=== PATIENT | female | born 2005 | race Caucasian/White ===

== ENCOUNTER 2024-05-19 16:55 | Emergency (ER) | payer OTHER, SELFPAY ==
[2024-05-19 17:51] VITALS: BP 120/61; PULSE 76; RESP 20; TEMP 37.3; O2SAT 100
--- NOTE | 2024-05-19 18:19 | ED.EAR ---
HPI - Ear Problem General Chief complaint: Ear Stated complaint: blood drainage from ear Time Seen by Provider: 05/19/24 18:19 Source: patient, family, RN notes reviewed and old records reviewed Mode of arrival: ambulatory Limitations: no limitations History of Present Illness HPI Narrative: 18-year-old female presents to the [facility] with complaints of right ear pain. Blood from her ear since yesterday. Patient reports that she was seen in another urgent care and was told to use ear drops. Symptoms started 2 weeks ago with ear discomfort Related Data Allergies Allergy/AdvReac Type Severity Reaction Status Date / Time No Known Allergies Allergy Mild Verified 05/19/24 18:10 Review of Systems Review of Systems: All systems reviewed & are unremarkable except as noted in HPI and below Constitutional: Constitutional: Reports no additional constitutional complaints ENT: Reports as per HPI Cardiovascular: Cardiovascular: Reports no additional cardiovascular complaints, Denies chest pain and Denies dyspnea Respiratory: Respiratory: Reports no additional respiratory complaints, Denies chest congestion, Denies cough and Denies dyspnea Gastrointestinal: Gastrointestinal: Reports no additional gastrointestinal complaints, Denies abdominal pain, Denies nausea and Denies vomiting Musculoskeletal: Musculoskeletal: Reports no additional musculoskeletal complaints Integumentary/Breasts: Skin/Breast: Reports system reviewed and no additional complaints, except as docu PMFSH Social History Social History Smoking status: Never smoker Alcohol intake: never Comments At the time of my signature, I reviewed and agree with the nursing past medical, surgical, social, and family history. There is no relevant family history pertinent to the patient complaint. Exam Const: General: cooperative, healthy appearing, comfortable, no acute distress, well developed, alert and well nourished Nutritional Appearance: well nourished Orientation/consciousness: patient oriented x3 Limitations: no limitations HENMT: Head: normal to inspection Ears: hearing grossly normal bilaterally, external ears normal, Abnormal EAC present cerumen impaction on the left and TM abnormal perforated with bloody discharge on the right and with purulent discharge on the right Face/Nose/Sinus: Normal external nose present, normal facial exam and face symmetric Face and sinus: normal facial exam and face symmetric Eyes: General: appearance normal, both eyes and all related structures Alignment and Position: alignment normal Periorbital: periorbital findings normal Neck: Neck: normal visual inspection, full ROM, no lymphadenopathy and no meningeal signs Chest: Chest palpation & inspection: normal inspection of the chest Resp: Effort & Inspection: normal respiratory effort and able to speak in complete sentences Cardio: Rate: regular rate Skin: General skin exam: normal color and no rashes or lesions noted Lesions: no lesions Rashes: no rashes Wounds: no wounds Neuro: General: patient oriented x3, gait normal, tone normal, moves all extremities and no meningeal signs Cognition (Neuro): normal cognition Speech: normal speech Gait exam (Neuro): Normal gait present Extrem: General: normal to inspection, full ROM, capillary refill normal and normal gait Psych: Appearance: grossly normal and well kempt Mental Status: mental status grossly normal Speech and movement: Normal speech and movement present and Clear speech present Affect: normal affect Attitude: cooperative Course Course Emergency Course: Discharge instructions reviewed with parent/patient, as well as provided in writing per nursing staff. The instructions also include specific and strict return/GO TO THE ER as well as f/u information. All questions have been answered, and the parent/patient deny any further questions with discharge and discharge plan. Some parts of this dictation were generated by voice recognition software and may contain typographical and/or grammatical inaccuracies. Level of Care: Express Care Visit Vital Signs Vital signs: Vital Signs Temperature 99.2 F 05/19/24 17:51 Pulse Rate 76 05/19/24 17:51 Respiratory Rate 20 05/19/24 17:51 Blood Pressure 120/61 05/19/24 17:51 Pulse Oximetry 100 05/19/24 17:51 Oxygen Delivery Room Air 05/19/24 17:51 Temperature 99.2 F 05/19/24 17:51 Pulse Rate 76 05/19/24 17:51 Respiratory Rate 20 05/19/24 17:51 Blood Pressure 120/61 05/19/24 17:51 Pulse Oximetry 100 05/19/24 17:51 Oxygen Delivery Room Air 05/19/24 17:51 reviewed Medical Decision Making MDM Narrative Medical decision making narrative: patient is sitting comfortably on exam table. No acute distress noted. Nontoxic in appearance. Vitals are stable. Patient presents with right ear discomfort, bloody discharge Was able to clear most of this cerumen from the left ear. Able to visualize TM which was normal. Used to curette Right TM, perforation noted, drainage, bloody as well as purulent. Will treat with oral antibiotics and ear drops. Encouraged patient to follow-up with primary care provider and ENT Discharge instructions reviewed with patient, as well as provided in writing per nursing staff. The instructions also include specific and strict return/GO TO THE ER as well as f/u information. All questions have been answered, and the patient deny any further questions with discharge and discharge plan. Some parts of this dictation were generated by voice recognition software and may contain typographical and/or grammatical inaccuracies. Differential Diagnosis Differential Diagnosis: Otitis media, otitis media with perforation, excessive cerumen Medical Records Medical records reviewed: Yes I reviewed the external patient's medical records. Vital Signs Vital Signs: Vital Signs Temperature 99.2 F 05/19/24 17:51 Pulse Rate 76 05/19/24 17:51 Respiratory Rate 20 05/19/24 17:51 Blood Pressure 120/61 05/19/24 17:51 Pulse Oximetry 100 05/19/24 17:51 Oxygen Delivery Room Air 05/19/24 17:51 Temperature 99.2 F 05/19/24 17:51 Pulse Rate 76 05/19/24 17:51 Respiratory Rate 20 05/19/24 17:51 Blood Pressure 120/61 05/19/24 17:51 Pulse Oximetry 100 05/19/24 17:51 Oxygen Delivery Room Air 05/19/24 17:51 reviewed Lab Data Lab results reviewed: Yes I reviewed the patient's lab results. Labs: reviewed Critical Care Time Critical Care Time Critical Care Time: No Discharge Plan Discharge Clinical Impression: Excessive cerumen in left ear canal Acute suppur right otitis media w/spontan rupture of tympanic membrane Qualifiers: Recurrence: not specified as recurrent Qualified Code(s): H66.011 - Acute suppurative otitis media with spontaneous rupture of ear drum, right ear Patient Disposition: Home, Self-Care Condition: Stable Instructions: Antibiotic Form, Ruptured Eardrum (ED), Ear Infection (GEN) Additional Instructions: Take antibiotics as prescribed Use ear drops as prescribed Follow-up with primary care provider If you are having a hard time finding a physician please call our [facility] group liaison at [phone]. Follow-up with ENT For new or worsening symptoms go directly to the emergency room Patient Language: Swedish Prescriptions: New amoxicillin 875 mg tablet 875 mg PO Q12H Qty: 20 0RF ciprofloxacin HCl 0.3 % drops See Rx Instructions .Route .COMPLEX Qty: 2.5 0RF Rx Instructions: Place 4 drops in right ear twice daily for 7 days Follow-up/Referrals: Toney Jones MD [Physician] - PHYSICIAN,RAILROAD CAR LETTERER [Primary Care Provider] - Gino Perez MD [Physician] - Stand Alone Forms: Work/School Release IP Time of Disposition: 18:31
== END 2024-05-19 18:37 | disposition home or self-care (01) ==
PROVIDERS: Emergency Provider Nurse Practitioner; Referring Provider Emergency Medicine
DX: H66.011 Acute suppurative otitis media with spontaneous rupture of ear drum, right ear (principal); H61.22 Impacted cerumen, left ear
CPT/HCPCS: 99203; G0463

== ENCOUNTER 2025-04-17 14:15 | Emergency (ER) | payer OTHER, SELFPAY ==
--- NOTE | 2025-04-17 14:20 | ED_ITS ---
HPI - URI/Sore Throat General Chief Complaint: Upper Respiratory Infection Stated Complaint: sick/rash Time Seen by Provider: 04/17/25 14:22 Source: patient, RN notes reviewed and old records reviewed Mode of arrival: ambulatory Limitations: no limitations History of Present Illness HPI Narrative: 19-year-old female presents to the [facility] with complaints of a sore throat, seizing and a cough for the last 3-4 days. States that she had a rash last night on her chest, reports the rash is better today. Denies any treatment prior to arrival. States for the sneezing in the cough she has taken DayQuil. States the sore throat is better. [place] feverish a couple of days ago. Requesting a work note for yesterday and today Denies any ear pain. Denies any chest pain or shortness of breath Related Data Home Medications ?Medication ?Instructions ?Recorded ?Confirmed ?Last Taken ?Type No Home Medications 04/17/25 04/17/25 U nknown History Allergies Allergy/AdvReac Type Severity Reaction Status Date / Time No Known Allergies Allergy Mild Verified 04/17/25 14:19 Review of Systems Review of Systems: All systems reviewed & are unremarkable except as noted in HPI and below Constitutional: Constitutional: Reports no additional constitutional complaints ENT: Reports as per HPI and Reports sore throat Cardiovascular: Cardiovascular: Reports no additional cardiovascular complaints, Denies chest pain and Denies dyspnea Respiratory: Respiratory: Reports as per HPI, Denies chest congestion, Reports cough and Denies dyspnea Musculoskeletal: Musculoskeletal: Reports no additional musculoskeletal complaints Integumentary/Breasts: Skin/Breast: Reports system reviewed and no additional complaints, except as docu PMFSH Social History Social History Smoking status: Never smoker Alcohol intake: never Comments At the time of my signature, I reviewed and agree with the nursing past medical, surgical, social, and family history. There is no relevant family history pertinent to the patient complaint. Exam Const: General: cooperative, healthy appearing, comfortable, no acute distress, well developed, alert and well nourished Nutritional Appearance: well nourished Orientation/consciousness: patient oriented x3 Limitations: no limitations HENMT: Head: normal to inspection Ears: hearing grossly normal bilaterally, external ears normal, TM's normal bilaterally, EAC's normal, mastoids normal and no periauricular adenopathy Face and sinus: normal facial exam, face symmetric, no ecchymosis and no erythema Mouth: Yes Normal oral and palatal mucosa present, Yes lip normal, Yes tongue normal and Yes moist mucous membranes Throat: posterior oropharynx normal, uvula midline, postnasal drainage and no uvular edema Eyes: General: appearance normal, both eyes and all related structures Alignment and Position: alignment normal Eyelids: eyelids normal Neck: Neck: normal visual inspection, full ROM, no lymphadenopathy and no meningeal signs Chest: Chest palpation & inspection: normal inspection of the chest Resp: Effort & Inspection: normal respiratory effort and able to speak in complete sentences Auscultation: clear to auscultation bilaterally, no crackles, no rales, no rhonchi and no wheezes Cardio: Rate: regular rate Skin: General skin exam: normal color and no rashes or lesions noted Neuro: General: patient oriented x3, gait normal, moves all extremities and no meningeal signs Cognition (Neuro): normal cognition Speech: normal speech Gait exam (Neuro): Normal gait present Extrem: General: normal to inspection, full ROM, capillary refill normal and normal gait Psych: Appearance: grossly normal and well kempt Mental Status: mental status grossly normal Speech and movement: Normal speech and movement present and Clear speech present Affect: normal affect Attitude: cooperative Course Course Level of Care: Express Care Visit Vital Signs Vital signs: Vital Signs Temperature 98.5 F 04/17/25 14:25 Pulse Rate 89 04/17/25 14:25 Respiratory Rate 18 04/17/25 14:25 Blood Pressure 132/82 04/17/25 14:25 Pulse Oximetry 99 04/17/25 14:25 Oxygen Delivery Room Air 04/17/25 14:25 Temperature 98.5 F 04/17/25 14:25 Pulse Rate 89 04/17/25 14:25 Respiratory Rate 18 04/17/25 14:25 Blood Pressure 132/82 04/17/25 14:25 Pulse Oximetry 99 04/17/25 14:25 Oxygen Delivery Room Air 04/17/25 14:25 Reviewed MDM - URI/Sore Throat MDM Narrative Medical decision making narrative: Patient sitting in exam room. Patient is nontoxic, vitals stable. Patient presents with 3-4 day history of URI. Sneezing, sore throat, cough. Postnasal drainage noted. No acute findings. Patient is flu COVID and strep were all negative. Will culture strep. Patient appropriate for outpatient treatment viral URI Discharge instructions reviewed with patient, as well as provided in writing per nursing staff. The instructions also include specific and strict return/GO TO THE ER as well as f/u information. All questions have been answered, and the patient deny any further questions with discharge and discharge plan. Some parts of this dictation were generated by voice recognition software and may contain typographical and/or grammatical inaccuracies. Differential Diagnosis Differential diagnosis: Likely upper respiratory infection, otitis media, sinusitis, viral infection, bronchitis, influenza and pharyngitis Lab Data Labs: Lab Results 04/17/25 04/17/25 Range/Units 14:41 14:48 POC Influenza A Ag Negative (Negative) POC Influenza B Ag Negative (Negative) POC SARS CoV-2 Ag Negative (Negative) POC Grp A Strep Screen Negative (Negative) Reviewed Critical Care Time Critical Care Time Critical Care Time: No Discharge Plan Discharge Clinical Impression: Upper respiratory infection Qualifiers: URI type: unspecified viral URI Qualified Code(s): J06.9 - Acute upper respiratory infection, unspecified Patient Disposition: Home Condition: Stable Instructions: Antibiotic Form, Upper Respiratory Infection (DC) Additional Instructions: Your rapid strep swab was negative today at [facility]. A throat culture will be sent to the laboratory for further testing. If the test is positive, you will receive a phone call within 48 hours and an appropriate antibiotic will be initiated at that time. Your rapid COVID test were negative Your rapid flu test was negative Your symptoms are likely due to a viral illness, which is not treated with antibiotics. Typically viral infections last 7-10 days, can linger for couple of weeks. It is very important to treat your symptoms. Drink plenty of water, Gatorade, Pedialyte, ice pops or Jell-O. -Alternate Tylenol and Motrin per package directions for fever or pain. You can alternate every 4 hours -Antihistamine medication such as Zyrtec/Claritin/Joanie during the day can help improve symptoms. -doing daily nasal irrigations can help relieve pressure your sinuses. Things like a Neti pot -Use Flonase twice a day for 5 days then daily to help reduce the inflammation and dry up your sinuses. -You can also use Mucinex. Be sure to drink plenty of water with this medication at least 8 ounces with every dose and it is important to drink 8 to 10 glasses of water per day. Water is a natural decongestant -Eat and drink things that are easy to swallow, like tea or soup, or popsicles. -Oral rinses such as: Salt water gargles and/or may use topical anesthetic (eg. Chloraseptic spray) or lozenges to relieve dryness or throat pain). -Frequent hand washing or hand manufacturing sales representative is one of the best ways to prevent spread of infection. -Using a vaporizer or humidifier at night will also help thin secretions and help with coughing up phlegm. -Follow up with primary care provider in 7-10 days if condition is not improving - For new or worsening symptoms go directly to the nearest ER Patient Language: Estonian Prescriptions: No Action No Home Medications Follow-up/Referrals: UNKNOWN,DOCTOR [Primary Care Provider] Stand Alone Forms: Work/School Release IP Time of Disposition: 14:48
[2025-04-17 14:25] VITALS: BP 132/82; PULSE 89; RESP 18; TEMP 36.9; O2SAT 99
[2025-04-17 14:45] LABS: EDSTREPNEGPOS1 Negative (Negative)
[2025-04-17 14:50] LABS: EDCOVIDSCREEN Negative (Negative); EDINFLUASCREEN Negative (Negative); EDINFLUBSCREEN Negative (Negative)
== END 2025-04-17 14:50 | disposition home or self-care (01) ==
PROVIDERS: Emergency Provider Nurse Practitioner
DX: J06.9 Acute upper respiratory infection, unspecified (principal)
CPT/HCPCS: 87081; 87426; 87804; 87880; 99213; G0463

== ENCOUNTER 2025-05-03 13:30 | Emergency (ER) | payer OTHER, SELFPAY ==
--- NOTE | ~2025-05-03 | XR_ITS ---
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 Technique: 2 views obtained. Findings: Abnormal density in the left lower lobe which appears multilevel. Remaining lungs are clear. No pneumothorax. Heart is normal size. Mediastinal and hilar contours are within normal limits. Bony thorax no acute abnormality. Impression: Probable nodular left lower lobe pneumonia. Follow-up recommended to assess resolution Reviewed, dictated and finalized at location P. BUS DRIVER Impression: Probable nodular left lower lobe pneumonia. Follow-up recommended to assess res olution
[2025-05-03 13:40] VITALS: BP 134/73; PULSE 100; RESP 16; TEMP 36.8; O2SAT 100
--- NOTE | 2025-05-03 13:56 | ED.URI ---
HPI - URI/Sore Throat General Chief Complaint: Upper Respiratory Infection Stated Complaint: Cough / Head and Back Pain Patient presents to the [facility] with complaints of worsening cough, headache, fever, chills, left-sided rib pain and shortness of breath on occasion. Patient noted over the last 3-4 days the symptoms have started. Noted she had more cold-like symptoms with sore throat and nasal congestion when she was evaluated here about 1 week ago and the symptoms have completely resolved. Patient noted she has been using some [id number] cough cold medications and these helped with the cold symptoms but the newer symptoms has not helped at all. No known sick contacts. Denies wheezing, dizziness, sinus pain, current sore throat, nausea, vomiting, diarrhea. Related Data Allergies Allergy/AdvReac Type Severity Reaction Status Date / Time No Known Allergies Allergy Mild Verified 05/03/25 13:44 Review of Systems Constitutional: Constitutional: Reports as per HPI, Reports chills, Reports fatigue, Reports fever(s) and Denies weakness Eyes: Eyes: Reports no additional eye complaints ENT: Reports as per HPI, Denies vertigo, Denies dizziness, Denies nasal congestion and Denies sore throat Cardiovascular: Cardiovascular: Reports no additional cardiovascular complaints Respiratory: Respiratory: Reports as per HPI, Reports chest congestion, Reports cough, Reports dyspnea and Denies wheezing Comments: Left rib /chest wall pain Gastrointestinal: Gastrointestinal: Reports no additional gastrointestinal complaints Genitourinary: Genitourinary: Reports no additional female genitourinary complaints Musculoskeletal: Musculoskeletal: Reports as per HPI, Denies back pain and Denies myalgias Integumentary/Breasts: Skin/Breast: Reports as per HPI, Denies erythema and Denies rash Neurologic: Reports as per HPI, Denies vertigo, Denies dizziness, Denies headache(s), Denies numbness and Denies weakness Psychiatric: Psychiatric: Reports no additional psychiatric complaints Endocrine: Endocrine: Reports no additional endocrine complaints Hematologic/Lymphatic: Hematologic/Lymphatic: Reports no additional hematologic/lymphatic complaints Allergic/Immunologic: Allergic/Immunologic: Reports as per HPI and Denies wheezing PMFSH Social History Social History Smoking status: Never smoker Alcohol intake: never Exam Const: General: healthy appearing and no acute distress Nutritional Appearance: well nourished Orientation/consciousness: patient oriented x3 Limitations: no limitations HENMT: Head: normal to inspection Ears: external ears normal and TM's normal bilaterally Face/Nose/Sinus: Normal external nose present and Normal nares present Face and sinus: normal facial exam and sinuses nontender Mouth: Yes Normal oral and palatal mucosa present, Yes lip normal and Yes moist mucous membranes Throat: posterior oropharynx normal Neck: Neck: normal visual inspection and no lymphadenopathy Chest: Chest palpation & inspection: normal inspection of the chest and no tenderness Resp: Effort & Inspection: normal respiratory effort Auscultation: no crackles, no rales, rhonchi left upper and left lower, no wheezes and lung sounds not diminished Other: dry cough noted Cardio: Rate: regular rate Rhythm: regular rhythm Skin: General skin exam: normal color Rashes: no rashes Wounds: no wounds Neuro: General: patient oriented x3 Speech: normal speech Gait exam (Neuro): Normal gait present Psych: Mental Status: mental status grossly normal Affect: normal affect Attitude: cooperative Course Course Level of Care: Express Care Visit Vital Signs Vital signs: Vital Signs Temperature 98.3 F 05/03/25 13:40 Pulse Rate 100 05/03/25 13:40 Respiratory Rate 16 05/03/25 13:40 Blood Pressure 134/73 05/03/25 13:40 Pulse Oximetry 100 05/03/25 13:40 Oxygen Delivery Room Air 05/03/25 13:40 Temperature 98.3 F 05/03/25 13:40 Pulse Rate 100 05/03/25 13:40 Respiratory Rate 16 05/03/25 13:40 Blood Pressure 134/73 05/03/25 13:40 Pulse Oximetry 100 05/03/25 13:40 Oxygen Delivery Room Air 05/03/25 13:40 MDM - URI/Sore Throat MDM Narrative Medical decision making narrative: COVID negative, for did have positive strep B culture but no significant symptoms related to this. Pneumonia noted on chest x-ray. The patient was evaluated by myself in the express care. History is obtained from patient who is an independent historian and physical exam was performed. Available medical records were reviewed at this time. Exam findings show no acute concerns or changes; patient is non-toxic appearing and is in no distress. Patient is appropriate for outpatient treatment and follow-up. I have evaluated and discussed social determinants of health with the patient that could potentially impact subsequent diagnosis and treatment plans. Differential diagnosis and treatment plan were discussed with the patient. Patient agrees with discussion and after shared medical decision making agrees with plan of care. All questions were answered to the patient's satisfaction. Differential Diagnosis Differential diagnosis: Likely upper respiratory infection, croup, otitis media, sinusitis, viral infection, bronchitis, influenza and pharyngitis Medical Records Attestation: I reviewed the patient's medical records. Lab Data Attestation: I reviewed the patient's lab results. Labs: Lab Results 05/03/25 Range/Units 14:19 POC Influenza A Ag Negative (Negative) POC Influenza B Ag Negative (Negative) POC SARS CoV-2 Ag Negative (Negative) Imaging Data Attestation: I personally reviewed and interpreted this imaging study as follows: My impression: Left lower lobe consolidation Radiologist's impression: Impression: Probable nodular left lower lobe pneumonia. Follow-up recommended to assess resolution Reviewed, dictated and finalized at location [facility] Discharge Plan Discharge Clinical Impression: Left lower lobe pneumonia Patient Disposition: Home Condition: Stable Instructions: Antibiotic Form, Community Acquired Pneumonia (ED) Additional Instructions: Take the antibiotics as directed for the entire course. Do not miss any doses. What you are taking antibiotics and is recommended to take a probiotic or have yogurt daily to return the good gut bacteria to your system. This can also help with acute diarrhea while taking antibiotics. It can take 24-48 hours for the antibiotics to start to relieve your symptoms continue to take these medications to help with various symptoms: Tylenol or Motrin for pain, headache, or fever Flonase/fluticasone or Nasacort/triamcinolone nasal spray- helps with congestion and nasal drainage. Sudafed/pseudoephedrine helps with sinus pain and congestion. Caution with high blood pressure. Use a humidifier or vaporizer at night. Drink plenty of water. 8-10 glasses per day. Mucinex/guaifenesinas directed and be sure to take with 8oz of water. Warm compresses over the forehead and cheeks to promote sinus drainage. Return to urgent care or go to the ER for new or worsening symptoms. Follow up with Primary provider if not improved after 1 week. since you had a chest x-ray with diagnosed pneumonia in the left lower lobe it is recommended that you have a repeat chest x-ray in 7-10 days to ensure this has completely resolved, follow up with primary care physician to have this obtained. Patient Language: Nigerien Prescriptions: New azithromycin 250 mg tablet See Rx Instructions .ROUTE .COMPLEX Qty: 6 0RF Rx Instructions: For 250 mg dose pack: take 500 mg today (day 1), then 250 mg for 4 days (days 2-5) benzonatate 200 mg capsule 200 mg PO TID PRN (Reason: cough) Qty: 30 0RF methylprednisolone [Medrol (Juan Carlos)] 4 mg tablets,dose pack See Rx Instructions .ROUTE .COMPLEX Qty: 21 0RF Rx Instructions: for 6 days Follow-up/Referrals: PHYSICIAN,DROP FORGE OPERATOR [Primary Care Provider, Internal Medicine] Stand Alone Forms: Work/School Release IP Time of Disposition: 14:25
[2025-05-03 14:21] LABS: EDCOVIDSCREEN Negative (Negative); EDINFLUASCREEN Negative (Negative); EDINFLUBSCREEN Negative (Negative)
== END 2025-05-03 14:30 | disposition home or self-care (01) ==
PROVIDERS: Emergency Provider Nurse Practitioner Family
DX: J18.1 Lobar pneumonia, unspecified organism (principal); Z20.822 Contact with and (suspected) exposure to COVID-19
CPT/HCPCS: 71046; 87426; 87804; 99213; G0463